=== PATIENT | female | born 1975 | race Caucasian/White ===

== ENCOUNTER 2016-07-29 09:54 | Emergency (ER) | payer OTHER ==
[2016-07-29 10:04] VITALS: BP 124/79; PULSE 81; TEMP 98.4; BMI 29.2
[2016-07-29] MEDS ORDERED: diphenhydrAMINE HCL 25 MG CAPSULE (FP) PO ONE ×2 (11:22→11:30)
--- NOTE | 2016-07-29 11:27 | PDOC ---
History of Present Illness - General Chief Complaint: Itching Stated Complaint: LEG ITCHING Time Seen by Provider: 07/29/16 11:12 History Source: Patient Exam Limitations: No Limitations - History of Present Illness Initial Comments: 07/29/16 11:29 Chief complaint: Bilateral feet itchiness with swelling History of Present illness: Patient is a 40-year-old female with a history of anemia and uterine fibroids, neurofibromyosis according to patient today complaining of slight swelling to dorsal bilateral feet and left ankle 3 days with itchiness with no rash. Patient reports that she was admitted to [facility] from 07/09-07/12/16 for hysterectomy due to fibroids. Patient denies any fever. Any previous swelling of her lower extremities. Patient denies any calf pain. Patient denies any new soaps, lotions , or any medications. Patient was on oxycodone which she last took 2 weeks ago and ibuprofen last Friday. Patient does not have any rash or redness of feet or any peeling of skin on feet. She denies being up on her feet for long periods of time has been resting due to having recent surgery. 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) Other medical history: migranes - Surgical History Abdominal Surgery: Yes ([place]) - Family Disease History Family Disease History: Other: Father (HTN) - Reproductive History (#): 7 Para: 5 - Immunization History Immunization Up to Date: Yes - Psycho/Social/Smoking Cessation Hx Anxiety: No Suicidal Ideation: No Smoking Status: No Smoking History: Never smoked Have you smoked in the past 12 months: No Number of Cigarettes Smoked Daily: 0 If you are a former smoker, when did you quit?: 19 yrs Hx Alcohol Use: No Drug/Substance Use Hx: No Substance Use Type: Alcohol Review of Systems - Review of Systems Able to Perform ROS?: Yes Constitutional: No: Symptoms Reported HEENTM: No: Symptoms Reported Respiratory: No: Symptoms reported Cardiac (ROS): No: Symptoms Reported ABD/GI: No: Symptoms Reported : No: Symptoms Reported Musculoskeletal: Yes: Symptoms Reported, Joint Swelling (b/l feet, left ankle slight) Integumentary: Yes: Pruritus (b/l feet for 3 days ) Neurological: No: Symptoms reported *Physical Exam - Vital Signs Last Vital Signs Temp Pulse Resp BP Pulse Ox 98.4 F 81 19 124/79 97 07/29/16 10:07/29/16 10:07/29/16 10:07/29/16 10:07/29/16 10:01 - Physical Exam General Appearance: Yes: Appropriately Dressed Respiratory/Chest: positive: Lungs Clear, Normal Breath Sounds. negative: Chest Tender, Respiratory Distress Cardiovascular: positive: Regular Rhythm, Regular Rate, S1, S2 Extremity: positive: Normal Capillary Refill, Normal Inspection, Normal Range of Motion, Pedal Edema (minimal b/l ), Other (negative Mayo b/l ). negative: Tender, Coldness, Cyanosis, Delayed Capillary Refill, Swelling, Calf Tenderness , Erythema, Inflammation Integumentary: positive: Normal Color, Swelling (minimal b/l dorsal feet, left lateral ankel ), Other (vertical scar lower mid abdomen with no surrounding edema/erythema/non tender). negative: Dry, Warm, Cyanotic, Erythema, Mottled, Pale, Cold, Clammy, Diaphoresis, Moist, Hives, Petechiae, Rash, Ecchymosis, Bruising Neurologic: positive: Alert, Normal Response, Respond to painful stimul (b/l feet). negative: Numbness, Sensory Deficit Medical Decision Making - Medical Decision Making 07/29/16 11:31 Patient is a 40-year-old female with a history of anemia and uterine fibroids, neurofibromyosis according to patient today complaining of slight swelling to dorsal bilateral feet and left ankle 3 days with itchiness with no rash. Patient reports that she was admitted to [facility] from 110-113 for hysterectomy due to fibroids. Patient denies any fever or any previous swelling of her lower extremities. Patient denies any calf pain. Patient denies any new soaps, lotions, or any medications. Patient was on oxycodone which she last took 2 weeks ago and ibuprofen last Friday. Patient does not have any rash or redness of feet or any peeling of skin on feet. She denies being up on her feet for long periods of time has been resting due to having recent surgery. b/l feet, left lateral ankle swelling with pruritis for 3 days due to having recent hysterectomy 07/09/16 will rule out DVT b/l legs PLAN: benadryl 25 mg po now and every 4 hrs prn itchiness b/l venous doppler no DVT's noted per Dr. Elena 07/29/16 13:11 07/29/16 13:12 *DC/Admit/Observation/Transfer Diagnosis at time of Disposition: Edema of both feet, Pruritus - Discharge Dispostion Disposition: HOME Condition at time of disposition: Stable - Patient Instructions Additional Instructions: Follow up with your primary care provider within the next few days Return to emergency room if symptoms worsen increased swelling of her extremities and itchiness or rash or any new symptoms develop Today your tests were negative for any blood clots of your legs Patient voiced understanding of discharge instructions and all questions were answered
== END 2016-07-29 14:01 | disposition home or self-care (01) ==
LOC: JERFT 09:54
DX: R60.0 Localized edema (principal); L29.8 Other pruritus; D64.9 Anemia, unspecified
CPT/HCPCS: 93970-TC; 99281-25

== ENCOUNTER 2017-09-09 22:01 | Emergency (ER) | payer OTHER ==
[2017-09-09 22:24] VITALS: BP 136/77; PULSE 84; TEMP 98.5; BMI 32.9
--- NOTE | 2017-09-09 22:24 | PDOC ---
History of Present Illness - General Chief Complaint: Shortness of Breath Stated Complaint: PAIN Time Seen by Provider: 09/09/17 22:21 History Source: Patient Exam Limitations: No Limitations - History of Present Illness Initial Comments: CHIEF COMPLAINT: HISTORY OF PRESENT ILLNESS: Vital signs on arrival are within normal limits. REVIEW OF SYSTEMS: GENERAL/CONSTITUTIONAL: Subjective fever/chills. No weakness. No weight change. HEAD, EYES, EARS, NOSE AND THROAT: No change in vision. No ear pain or discharge. No sore throat. CARDIOVASCULAR: No chest pain or shortness of breath. RESPIRATORY: No cough, wheezing, or hemoptysis. GASTROINTESTINAL: See history of present illness. GENITOURINARY: No dysuria, frequency, or change in urination. MUSCULOSKELETAL: No joint or muscle swelling or pain. No neck or back pain. SKIN: No rash or easy bruising. NEUROLOGIC: No headache, vertigo, loss of consciousness, or loss of sensation. PHYSICAL EXAM: GENERAL: The patient is awake, alert, and fully oriented, in no acute distress. HEAD: Normal with no signs of trauma. ENT: Pupils equal, round and reactive to light, extraocular movements intact, sclera anicteric, conjunctiva clear. Neck supple. LUNGS: Clear to auscultation bilaterally. Normal excursion. No respiratory distress or use of accessory muscles. CV: RRR, S1/S2, no MRG. Cap refill < 2 sec. ABDOMEN: Soft, non-distended, non-tender even to deep palpation, no hepatomegaly or splenomegaly, no masses. EXTREMITIES: Normal range of motion, no edema. NEUROLOGICAL: Normal speech, normal gait. CN II-XII grossly intact. PSYCH: Normal mood, normal affect. SKIN: Warm, dry, normal turgor, no rashes or lesions noted. 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) COPD: No - Surgical History Abdominal Surgery: Yes ([place]) - Family Disease History Family Disease History: Other: Father (HTN) - Reproductive History (#): 7 Para: 5 - Immunization History Immunization Up to Date: Yes - Suicide/Smoking/Psychosocial Hx Smoking Status: No Smoking History: Never smoked Have you smoked in the past 12 months: No Number of Cigarettes Smoked Daily: 0 If you are a former smoker, when did you quit?: 19 yrs Information on smoking cessation initiated: No Hx Alcohol Use: No Drug/Substance Use Hx: No Substance Use Type: Alcohol *Physical Exam - Vital Signs Last Vital Signs Temp Pulse Resp BP Pulse Ox 98.5 F 84 21 136/77 97 09/09/17 22:10 09/09/17 22:10 09/09/17 22:10 09/09/17 22:10 09/09/17 22:10 Medical Decision Making - Medical Decision Making A/P:
--- NOTE | 2017-09-09 22:51 | PDOC ---
History of Present Illness - General Chief Complaint: Shortness of Breath Stated Complaint: PAIN Time Seen by Provider: 09/09/17 22:21 History Source: Patient Exam Limitations: No Limitations - History of Present Illness Initial Comments: CHIEF COMPLAINT: 41 y/o afebrile female with PMH neurofibromatosis c/o dry cough x 3 days with left lung pain today. HISTORY OF PRESENT ILLNESS: SHe states she had 3 ribs on her left side removed a few months ago because of neurofibromatosis. She states 3 days ago she developed hard, dry cough. Today she developed left rib pain and states her "lungs feel tired". She denies f/c, n/v/d, pressure type chest pain, abd pain and all other symptoms. Vital signs on arrival are within normal limits. REVIEW OF SYSTEMS: GENERAL/CONSTITUTIONAL: No fever/chills. No weakness. No weight change. HEAD, EYES, EARS, NOSE AND THROAT: No change in vision. No ear pain or discharge. No sore throat. CARDIOVASCULAR: +SOB and left rib pain. RESPIRATORY: +dry cough. No wheezing or hemoptysis. GASTROINTESTINAL: No abd pain, nausea, vomiting, diarrhea. GENITOURINARY: No dysuria, frequency, or change in urination. MUSCULOSKELETAL: No joint or muscle swelling or pain. No neck or back pain. SKIN: No rash or easy bruising. NEUROLOGIC: No headache, vertigo, loss of consciousness, or loss of sensation. PHYSICAL EXAM: GENERAL: The patient is awake, alert, and fully oriented, in no acute distress. She is well appearing with persistent dry cough. HEAD: Normal with no signs of trauma. ENT: Pupils equal, round and reactive to light, extraocular movements intact, sclera anicteric, conjunctiva clear. Neck supple. LUNGS: Clear to auscultation bilaterally. Normal excursion. No respiratory distress or use of accessory muscles. CV: RRR, S1/S2, no MRG. Cap refill < 2 sec. ABDOMEN: Soft, non-distended, non-tender even to deep palpation, no hepatomegaly or splenomegaly, no masses. EXTREMITIES: Normal range of motion, no edema. NEUROLOGICAL: Normal speech, normal gait. CN II-XII grossly intact. PSYCH: Normal mood, normal affect. SKIN: Warm, dry, normal turgor, no rashes or lesions noted. 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) COPD: No - Surgical History Abdominal Surgery: Yes ([place]) - Family Disease History Family Disease History: Other: Father (HTN) - Reproductive History (#): 7 Para: 5 - Immunization History Immunization Up to Date: Yes - Suicide/Smoking/Psychosocial Hx Smoking Status: No Smoking History: Never smoked Have you smoked in the past 12 months: No Number of Cigarettes Smoked Daily: 0 If you are a former smoker, when did you quit?: 19 yrs Information on smoking cessation initiated: No Hx Alcohol Use: No Drug/Substance Use Hx: No Substance Use Type: Alcohol *Physical Exam - Vital Signs Last Vital Signs Temp Pulse Resp BP Pulse Ox 98.5 F 84 21 136/77 97 09/09/17 22:10 09/09/17 22:10 09/09/17 22:10 09/09/17 22:10 09/09/17 22:10 Medical Decision Making - Medical Decision Making A/P: 41 y/o female with bronchitis. Plan is as follows: 1. hcg 2. cXR 3. PO prednisone hcg - negative CXR IMPRESSION: Normal chest xray the patient states she feels much better after prednisone. Will disharge with rx for 4 day course of prednisone. Suggested she f/u with her doctor and return to the ER immediately with any worsening or concerning symptoms. The patient verbalizes understanding of all instructions, has no further questions and is awaiting discharge. *DC/Admit/Observation/Transfer Diagnosis at time of Disposition: Bronchitis - Discharge Dispostion Disposition: HOME Condition at time of disposition: Improved - Referrals - Patient Instructions Printed Discharge Instructions: DI for Acute Bronchitis Additional Instructions: Discharge Instructions: -Your chest xray was normal -You have bronchitis -A prescription for prednisone was sent to your pharmacy; please take as prescribed -Call your doctor in the morning -Return to the ER with any worsening or concerning symptoms. - Post Discharge Activity Forms/Work/School Notes: Back to Work
[2017-09-09] MEDS ORDERED: predniSONE 20 MG TABLET (UD) PO ONE (22:52)
[2017-09-09] MEDS ORDERED: predniSONE 20 MG TABLET (UD) ONE (22:59)
--- NOTE | 2017-09-17 01:12 | EKG ---
Test Reason : Blood Pressure : / mmHG Vent. Rate : 086 BPM Atrial Rate : 086 BPM P-R Int : 148 ms QRS Dur : 086 ms QT Int : 384 ms P-R-T Axes : 048 037 040 degrees QTc Int : 459 ms NORMAL SINUS RHYTHM POSSIBLE LEFT ATRIAL ENLARGEMENT BORDERLINE ECG WHEN COMPARED WITH ECG OF 01-JUL-2015 02:35, NO SIGNIFICANT CHANGE WAS FOUND Confirmed by MADISON CANO MD ([id number]) on 09/17/2017 1:12:07 AM Referred By: Confirmed By:MADISON CANO MD
== END 2017-09-10 01:17 | disposition home or self-care (01) ==
LOC: JER 22:01
DX: J20.9 Acute bronchitis, unspecified (principal); Z85.89 Personal history of malignant neoplasm of other organs and systems
CPT/HCPCS: 71046-TC-FY; 84703; 93005; 93010; 99282-25

== ENCOUNTER 2017-09-26 09:17 | Emergency (ER) | payer OTHER ==
[2017-09-26 09:26] VITALS: PULSE 88; TEMP 98.4; BMI 31.8
[2017-09-26] MEDS ORDERED: METOCLOPRAMIDE HCL INJECTION 10 MG/2 ML VIAL IVPUSH ONE (09:39)
[2017-09-26] MEDS ORDERED: SODIUM CHLORIDE 1,000 ML IV STA (09:39)
--- NOTE | 2017-09-26 10:07 | PDOC ---
History of Present Illness - General History Source: Patient Exam Limitations: No Limitations - History of Present Illness Initial Comments: 09/26/17 10:37 The patient is a 42-year-old female, with a significant past medical history of anemia and neurofibromatosis, who presents to the emergency department with complaint of migraine that began Friday09/20/17. On exam, patient states that her migraine is intermittent, located on the left side with radiation to her eyes and nose region, 9/10 in severity, squeezing in sensation, and associated with nausea. She also reports that she experiences difficulty seeing when the pain comes on. She denies any recent falls or trauma. The patients migraines are usually located on her left side, lasting usually 1 to 2 days after treatment with Excedrin and Topamax, which was prescribed to her by her Assistant Women'S Basketball Coach that she follows up with at [facility] [place]. The patient also follows up with a Neurologist at the Center who diagnosed the patient with migraines after the patient had an MRI scan 2 years ago; he prescribed the patient Propanol, which the patient stopped taking after being placed on Topamax by her Assistant Women'S Basketball Coach. The patient has an upcoming appointment with her Neurologist on Friday09/29/17. She decided to come in to the ED today for further evaluation because her headache has lasted much longer than usual and the medications she usually takes have only alleviated her symptoms temporarily. The patients last headache was a few months ago. The patient denies any fever, chills, vomiting, diarrhea, or abdominal pain. Denies any chest pain or shortness of breath. Denies any dizziness or lightheadedness. Family History: Denies Social History: Patient is a social drinker. 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, ) COPD: No Other medical history: migraines, neurofibromytosis - Surgical History Abdominal Surgery: Yes ([place]) - Family Disease History Family Disease History: Other: Father (HTN) - Reproductive History (#): 7 Para: 5 - Immunization History Immunization Up to Date: Yes - Suicide/Smoking/Psychosocial Hx Smoking Status: No Smoking History: Never smoked Have you smoked in the past 12 months: No Number of Cigarettes Smoked Daily: 0 If you are a former smoker, when did you quit?: 19 yrs Information on smoking cessation initiated: No Hx Alcohol Use: No Drug/Substance Use Hx: No Substance Use Type: Alcohol <Ginette Mendoza - Last Filed: 09/26/17 14:05> - Past Medical History Allergies/Adverse Reactions: Allergies Allergy/AdvReac Type Severity Reaction Status Date / Time oxycodone HCl [From Percocet] Allergy Verified 09/26/17 09:21 Home Medications: Ambulatory Orders Acetaminophen/Caffeine/Butalb [Fioricet -] 1 tab PO TID PRN #12 tablet MDD 3 Review of Systems - Review of Systems Able to Perform ROS?: Yes Comments:: 09/26/17 10:38 GENERAL/CONSTITUTIONAL: No: fever, chills, weakness, loss of appetite. HEAD, EYES, EARS, NOSE AND THROAT:(+)Change in vision. No: ear pain, discharge, sore throat, throat swelling. CARDIOVASCULAR: No: chest pain, lightheadedness, palpitations, syncope RESPIRATORY: No: cough, shortness of breath, wheezing, hemoptysis, stridor. GASTROINTESTINAL: (+)Nausea. No: vomiting, abdominal cramping, diarrhea, rectal bleeding, constipation. GENITOURINARY: No: dysuria, hematuria, frequency, urgency, flank pain. MUSCULOSKELETAL: No: back pain, neck pain, joint pain, muscle swelling or pain SKIN AND BREASTS: No: lesions, pallor, rash or easy bruising. NEUROLOGIC: (+)Migraine. No: vertigo, paresthesias, weakness ENDOCRINE: No: unexplained weight gain or loss HEMATOLOGIC/LYMPHATIC: No: anemia, easy bleeding, swelling nodes <Farida Maradiaga - Last Filed: 09/26/17 13:19> *Physical Exam - Vital Signs Last Vital Signs Temp Pulse Resp BP Pulse Ox 98.4 F 88 18 123/73 100 09/26/17 09:22 09/26/17 09:22 09/26/17 09:22 09/26/17 09:22 09/26/17 09:22 - Physical Exam Comments: 09/26/17 10:41 GENERAL: The patient is in no acute distress. HEAD: Normal with no signs of trauma. EYES: PERRLA, EOMI, sclera anicteric, conjunctiva clear. ENT: Ears normal, nares patent, oropharynx clear without exudates. Moist mucous membranes. NECK: Normal range of motion, supple without lymphadenopathy, JVD, or masses. No nuchal rigidity. LUNGS: Breath sounds equal, clear to auscultation bilaterally. No wheezes, and no crackles. HEART:Regular rate and rhythm, normal S1 and S2 without murmur, rub or gallop. ABDOMEN: Soft, nontender, normoactive bowel sounds. No guarding, no rebound. MSK: (+)Some tenderness to the left-side post surgical. EXTREMITIES: Normal range of motion, no edema. No clubbing or cyanosis. No erythema, or tenderness. NEUROLOGICAL: Cranial nerves II through XII grossly intact. Normal speech. No focal neurological deficits. MUSCULOSKELETAL: Back non-tender to palpation, no CVA tenderness SKIN: Warm, Dry, normal turgor, no rashes or lesions noted. <Farida Maradiaga - Last Filed: 09/26/17 13:19> - Vital Signs Last Vital Signs Temp Pulse Resp BP Pulse Ox 98.4 F 88 18 123/73 100 09/26/17 09:22 09/26/17 09:22 09/26/17 09:22 09/26/17 09:22 09/26/17 09:22 <Ginette Mendoza - Last Filed: 09/26/17 14:05> ED Treatment Course - LABORATORY CBC & Chemistry Diagram: 09/26/17 10:21 09/26/17 10:21 - RADIOLOGY Radiology Studies Ordered: 09/26/17 13:[address] was reviewed by Dr. Mendoza and over-read by Radiology. Impression: No CT evidence of acute intracranial pathology. Partly empty sella turcica. - Medications Given in the ED: ED Medications Discontinued Medications Generic Name Dose Route Start Last Admin Trade Name Freq PRN Reason Stop Dose Admin Diphenhydramine HCl 25 mg 09/26/17 09:39 09/26/17 10:21 Benadryl Injection - IVPB 09/26/17 09:40 25 mg ONCE ONE Administration Metoclopramide HCl 10 mg 09/26/17 09:39 09/26/17 10:21 Reglan Injection - IVPUSH 09/26/17 09:40 10 mg ONCE ONE Administration <Farida Maradiaga - Last Filed: 09/26/17 13:19> - LABORATORY CBC & Chemistry Diagram: 09/26/17 10:21 09/26/17 10:21 <Ginette Mendoza - Last Filed: 09/26/17 14:05> Medical Decision Making - Medical Decision Making Ms Alvarez is a 42 yo F with a history of Neurofibromatosis (s/p multiple surgical resections, pt estimated 10), Migraines (Worked up at [facility] by her neurologist, s/ p MRI 2 years ago) who presents to the ER with a complaint of right sided headache. Symptoms began almost 1 week ago This is unusual for her, her migraines typically respond to Excedrine and last 1 day Last migraine was in April Pt has been taking between 4 and 6 Excedrine with minimal relief Pain is squeezing, located in the right eye/head/face (typical), gradual onset, began almost 1 week ago Pain is intermittent, improved with Excedrine by doesn't resolve No trauma No fevers or chills No neck pain DD: Tension BARRERA, Migraine, given h/o Neurofibromas, ? could this be a cause (last imaging was 2 years ago) Will do: Basic labs CT head Pain management IV F Re assess 09/26/17 11:04 Laboratory Tests 09/26/17 10:21 Sodium 141 Potassium 4.4 Chloride 109 H Carbon Dioxide 24 Anion Gap 8 BUN 10 Creatinine 0.6 Random Glucose 86 Laboratory Tests 09/26/17 10:21 WBC 7.0 D Hgb 12.1 D Hct 36.7 Plt Count 244 Neutrophils % 65.6 D Lymphocytes % 23.2 D 09/26/17 13:54 Upon re assessment, pt states she feels much better Will discharge to home Will give small prescription for Fiorecet Pt has appointment for September 29 already Clinical Impression: migraine headache, initial presentation 09/26/17 13:56 <Ginette Mendoza - Last Filed: 09/26/17 14:05> *DC/Admit/Observation/Transfer - Attestations Scribe Attestion: 09/26/17 10:43 Documentation prepared by Farida Maradiaga, acting as ophthalmic medical technologist for Ginette Mendoza MD. <Farida Maradiaga - Last Filed: 09/26/17 13:19> - Discharge Dispostion Admit: No <Ginette Mendoza - Last Filed: 09/26/17 14:05> Diagnosis at time of Disposition: Migraine Qualifiers: Migraine type: other Status migrainosus presence: without status migrainosus Intractability: not intractable Qualified Code(s): G43.809 - Other migraine, not intractable, without status migrainosus - Discharge Dispostion Disposition: HOME Condition at time of disposition: Stable - Patient Instructions Printed Discharge Instructions: DI for Migraine, Migraine Headaches ( Alternative Therapy) Additional Instructions: Ms Alvarez Daniel por venir a la sarah de emergencia hoy Puede kary Excedrin para aguillon migraa Si tiene un dolor rosemary, intente con Fiorecet para el dolor de tyron (receta enviada a aguillon farmacia) Controle si tiene fiebre, escalofros o vmitos Puede kary la medicacin que le dieron anteriormente por nuseas Si nota algn sntoma nuevo que lo stefani sentir involucrado, por favor regrese a la sarah de emergencia. Por favor, mantenga aguillon rosmery de seguimiento [facility] Thank you for coming in to the ER today You can take Excedrin for your migraine If you have severe pain, please try Fiorecet for headache (prescription sent to your pharmacy) Please monitor for fevers, chills, vomiting You can take the medication you were previously given for nausea If you notice any new symptoms that make your concerned please come back to the ER Please keep your follow up appointment on Friday Print Language: KHMER
[2017-09-26] MEDS ORDERED: METOCLOPRAMIDE HCL INJECTION 10 MG/2 ML VIAL ONE (10:23)
[2017-09-26 10:56] LABS: ANION GAP 8 (8-16); BLOOD UREA NITROGEN 10 mg/dL (7-18); CALCIUM 8.8 mg/dL (8.5-10.1); CHLORIDE 109 mmol/L (98-107); CO2 24 mmol/L (21-32); CREATININE 0.6 mg/dL (0.55-1.02); GLUCOSE,RANDOM 86 mg/dL (74-106); POTASSIUM 4.4 mmol/L (3.5-5.1); SODIUM 141 mmol/L (136-145)
[2017-09-26 10:59] LABS: BASO % 0.8 % (0-2.0); EOS % 3.6 % (0-4.5); HEMATOCRIT 36.7 % (32.4-45.2); HEMOGLOBIN 12.1 GM/dL (10.7-15.3); LYMPH % 23.2 % (8-40); MCH 28.8 pg (25.7-33.7); MCHC 32.8 g/dl (32.0-36.0); MEAN CELL VOLUME 87.8 fl (80-96); MEAN PLT VOLUME 10.3 fl (7.5-11.1); MONO % 6.8 % (3.8-10.2); NEUT % 65.6 % (42.8-82.8); PLATELET COUNT 244 K/MM3 (134-434); RBC 4.18 M/mm3 (3.60-5.2); RDW 13.9 % (11.6-15.6)
[2017-09-26] MEDS ORDERED: ACETAMINOPHEN/CAFFEINE/BUTALBITAL 1 TAB PO ONE (13:15)
[2017-09-26] MEDS ORDERED: KETOROLAC TROMETHAMINE 30 MG/1 ML VIAL IVPUSH ONE (13:16)
[2017-09-26] MEDS ORDERED: KETOROLAC TROMETHAMINE 30 MG/1 ML VIAL ONE (13:54)
[2017-09-26] MEDS ORDERED: ACETAMINOPHEN/CAFFEINE/BUTALBITAL 1 TAB ONE (13:54)
[2017-09-26 14:30] VITALS: BP 164/70
== END 2017-09-26 14:45 | disposition home or self-care (01) ==
LOC: JER 09:17
PROC: 3E033GC Introduction of Other Therapeutic Substance into Peripheral Vein, Percutaneous Approach (ICD-10-PCS; principal; 2017-09-26)
PROC: 3E033GC Introduction of Other Therapeutic Substance into Peripheral Vein, Percutaneous Approach (ICD-10-PCS; 2017-09-26)
PROC: 3E0333Z Introduction of Anti-inflammatory into Peripheral Vein, Percutaneous Approach (ICD-10-PCS; 2017-09-26)
DX: G43.809 Other migraine, not intractable, without status migrainosus (principal); Q85.00 Neurofibromatosis, unspecified; D86.2 Sarcoidosis of lung with sarcoidosis of lymph nodes; Z86.2 Personal history of diseases of the blood and blood-forming organs and certain disorders involving the immune mechanism; Z85.830 Personal history of malignant neoplasm of bone
CPT/HCPCS: 36415; 70450-TC; 80048; 84703; 85025; 96374; 96375; 99283-25; J7030

== ENCOUNTER 2018-02-05 21:05 | Emergency (ER) | payer OTHER ==
[2018-02-05 21:29] VITALS: BP 144/92; PULSE 79; TEMP 99.3; BMI 31.8
[2018-02-05] MEDS ORDERED: METOCLOPRAMIDE HCL INJECTION 10 MG/2 ML VIAL IVPB STA (21:47)
--- NOTE | 2018-02-05 21:47 | PDOC ---
History of Present Illness - General Chief Complaint: Headache Stated Complaint: HEADACHE Time Seen by Provider: 02/05/18 21:32 History Source: Patient - History of Present Illness Initial Comments: 02/05/18 23:31 42-year-old female with history of migraines, neurofibromatosis status post multiple removal surgeries complaining of migrainous headache for the last 5 days. Patient reports that she took her Topamax doses with no relief in pain. Patient reports photophobia and phonophobia which is similar to her previous migraine headaches symptoms. Denies dizziness, nausea, vomiting, abdominal pain. 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, ) COPD: No - Surgical History Abdominal Surgery: Yes ([place]) - Family Disease History Family Disease History: Other: Father (HTN) - Reproductive History (#): 7 Para: 5 - Immunization History Immunization Up to Date: Yes - Suicide/Smoking/Psychosocial Hx Smoking Status: No Smoking History: Never smoked Have you smoked in the past 12 months: No Number of Cigarettes Smoked Daily: 0 If you are a former smoker, when did you quit?: 19 yrs Information on smoking cessation initiated: No Hx Alcohol Use: No Drug/Substance Use Hx: No Substance Use Type: None Review of Systems - Review of Systems Able to Perform ROS?: Yes Is the patient limited Georgian proficient: No Constitutional: No: Symptoms Reported, See HPI, Chills, Diaphoresis, Fever, Loss of Appetite, Malaise, Night Sweats, Weakness, Weight Stable, Unintentional Wgt. Loss, Unexplained wgt Loss, Other Neurological: Yes: Headache, Other (photophobia and phonophobia) *Physical Exam - Vital Signs Last Vital Signs Temp Pulse Resp BP Pulse Ox 99.3 F 79 18 144/92 100 02/05/18 21:10 02/05/18 21:10 02/05/18 21:10 02/05/18 21:10 02/05/18 21:10 - Physical Exam General Appearance: Yes: Appropriately Dressed Respiratory/Chest: positive: Lungs Clear, Normal Breath Sounds Gastrointestinal/Abdominal: positive: Normal Bowel Sounds, Soft Extremity: positive: Normal Capillary Refill, Normal Inspection, Normal Range of Motion Integumentary: positive: Normal Color, Dry, Warm Neurologic: 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 Patient advised to follow-up with neurology for treatment management. *DC/Admit/Observation/Transfer Diagnosis at time of Disposition: Migraine headache without aura Qualifiers: Status migrainosus presence: with status migrainosus Intractability: not intractable Qualified Code(s): G43.001 - Migraine without aura, not intractable , with status migrainosus - Discharge Dispostion Disposition: HOME - Referrals - Patient Instructions Printed Discharge Instructions: Migraine -- Adult Additional Instructions: Drink plenty Of fluids. Take ibuprofen every 6 hours as needed for headache Follow-up with your neurologist as soon as possible. return to the ER if symptoms worsen. - Post Discharge Activity
[2018-02-05] MEDS ORDERED: SODIUM CHLORIDE 1,000 ML IV STA (21:48)
[2018-02-05] MEDS ORDERED: METOCLOPRAMIDE HCL INJECTION 10 MG/2 ML VIAL ONE (22:06)
[2018-02-05 22:20] LABS: BASO % 0.8 % (0-2.0); EOS % 4.5 % (0-4.5); HEMATOCRIT 35.1 % (32.4-45.2); HEMOGLOBIN 11.7 GM/dL (10.7-15.3); LYMPH % 27.2 % (8-40); MCH 29.3 pg (25.7-33.7); MCHC 33.3 g/dl (32.0-36.0); MEAN CELL VOLUME 87.9 fl (80-96); MEAN PLT VOLUME 9.9 fl (7.5-11.1); MONO % 9.3 % (3.8-10.2); NEUT % 58.2 % (42.8-82.8); PLATELET COUNT 256 K/MM3 (134-434); RDW 13.3 % (11.6-15.6); WHITE BLOOD COUNT 8.6 K/mm3 (4.0-10.0)
[2018-02-05 22:32] LABS: INR 1.1 (0.83-1.09); PROTHROMBIN TIME (PATIENT) 12.4 SEC (9.7-13.0)
[2018-02-05 22:41] LABS: ALBUMIN 3.6 g/dl (3.4-5.0); ALK PHOS 103 U/L (45-117); ANION GAP 9 (8-16); BILIRUBIN,TOTAL 0.2 mg/dL (0.2-1.0); BLOOD UREA NITROGEN 12 mg/dL (7-18); CALCIUM 8.8 mg/dL (8.5-10.1); CHLORIDE 110 mmol/L (98-107); CO2 25 mmol/L (21-32); CREATININE 0.6 mg/dL (0.55-1.02); GLUCOSE,RANDOM 90 mg/dL (74-106); SGOT/AST 16 U/L (15-37); SGPT/ALT 22 U/L (12-78); SODIUM 144 mmol/L (136-145)
[2018-02-05] MEDS ORDERED: KETOROLAC TROMETHAMINE 30 MG/1 ML VIAL IVPUSH ONE (23:10)
[2018-02-05] MEDS ORDERED: KETOROLAC TROMETHAMINE 30 MG/1 ML VIAL ONE (23:15)
== END 2018-02-05 23:59 | disposition home or self-care (01) ==
LOC: JER 21:05
PROC: 3E0333Z Introduction of Anti-inflammatory into Peripheral Vein, Percutaneous Approach (ICD-10-PCS; principal; 2018-02-05)
PROC: 3E033GC Introduction of Other Therapeutic Substance into Peripheral Vein, Percutaneous Approach (ICD-10-PCS; 2018-02-05)
PROC: 3E0337Z Introduction of Electrolytic and Water Balance Substance into Peripheral Vein, Percutaneous Approach (ICD-10-PCS; 2018-02-05)
DX: G43.001 Migraine without aura, not intractable, with status migrainosus (principal); Z85.830 Personal history of malignant neoplasm of bone
CPT/HCPCS: 36415; 80053; 84703; 85025; 85610; 99282-25; J7030

== ENCOUNTER 2018-10-04 10:02 | Emergency (ER) | payer OTHER ==
[2018-10-04 10:14] VITALS: BP 117/78; PULSE 80; TEMP 98; BMI 32.9
--- NOTE | 2018-10-04 11:30 | PDOC ---
History of Present Illness - General Chief Complaint: Pain Stated Complaint: BACK PAIN Time Seen by Provider: 10/04/18 10:28 History Source: Patient Exam Limitations: No Limitations - History of Present Illness Initial Comments: 10/04/18 11:29 43 yo w/ a h/o neurofibromatosis s/p multiple surgical tumor removals and hysterectomy, anemia, skin cancer s/p ressection, in remission, comes in c/o chronic low back pain radiating to the pelvic area for the past 1 year. Pain started again 2 days ago, hence the ED visit. Pt took diclofenac yesterday and it temporarily relieves the pain. Pain is not different than the pain she has had for the past year, no new event, no new trauma, no new injury. She denies anything different. She has been to her orthopedist who referred her to her OBGYN and she had a sono done last month but does not have her results yet. She denies any abdominal pain now, no vaginal bleeding, denies . Denies burning/pain on urination, no frequency/urgency on urination. Denies incontinence, no saddle paresthesias, no extremity numbbness/tignling, no IVDA. 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, ) COPD: No - Surgical History Abdominal Surgery: Yes ([place] 2002) - Family Disease History Family Disease History: Other: Father (HTN) - Reproductive History (#): 7 Para: 5 - Immunization History Immunization Up to Date: Yes - Suicide/Smoking/Psychosocial Hx Smoking Status: No Smoking History: Never smoked Have you smoked in the past 12 months: No Number of Cigarettes Smoked Daily: 0 If you are a former smoker, when did you quit?: 19 yrs Hx Alcohol Use: No Drug/Substance Use Hx: No Substance Use Type: None Review of Systems - Review of Systems Able to Perform ROS?: Yes Constitutional: No: Chills, Fever, Malaise, Night Sweats HEENTM: No: Eye Pain, Recent change in vision, Throat Pain Respiratory: No: Cough, Shortness of Breath Cardiac (ROS): No: Chest Pain, Palpitations, Chest Tightness ABD/GI: No: Diarrhea, Nausea, Vomiting, Abdominal cramping (none now) : No: Dysuria, Hematuria Musculoskeletal: Yes: Back Pain Integumentary: No: Rash Neurological: No: Headache, Numbness, Dizziness Psychiatric: No: Change in Appetite Endocrine: No: Unexplained Weight Loss *Physical Exam - Vital Signs Last Vital Signs Temp Pulse Resp BP Pulse Ox 98 F 80 18 117/78 99 10/04/18 10:09 10/04/18 10:09 10/04/18 10:09 10/04/18 10:10/04/18 10:09 - Physical Exam General Appearance: Yes: Nourished. No: Apparent Distress HEENT: positive: JAKE, Normal ENT Inspection, Normal Voice. negative: Pale Conjunctivae, Scleral Icterus (R), Scleral Icterus (L) Neck: positive: Supple. negative: Decreased range of motion, Tender midline Respiratory/Chest: positive: Lungs Clear, Normal Breath Sounds. negative: Respiratory Distress, Accessory Muscle Use Cardiovascular: positive: Regular Rhythm, Regular Rate Female Pelvic Exam: positive: normal external exam, normal size ovaries, discharge (mild whitish. Pt declines STD testing.). negative: CMT, adnexal tenderness (no uterine tenderness), vaginal bleeding Gastrointestinal/Abdominal: positive: Normal Bowel Sounds, Soft. negative: Tender, Guarding, Rebound Musculoskeletal: positive: Normal Inspection, Other (mild paraspinal muscular tenderness). negative: CVA Tenderness, Decreased Range of Motion, Vertebral Tenderness Extremity: positive: Normal Capillary Refill, Normal Inspection, Normal Range of Motion, Other (full sensory function to LEs). negative: Tender, Pedal Edema Integumentary: positive: Normal Color, Dry. negative: Jaundice, Rash Neurologic: positive: Fully Oriented, Alert, Normal Mood/Affect Medical Decision Making - Medical Decision Making 10/04/18 11:55 43 yo F w/ low back pain, chronic pain, which sometimes radiates to the pelvic region for 1 year. She has leena her PMD and her OB, had a sono done and results are pending. She has also seen ortho. Pelvic exam and back exam WNLs. She is ambulatory in [facility], take diclofenac for pain. WIll check UA, UCG and will refer back to her PMD and her OBGYN Return for worsening/concerning symptoms Pt verbalizes understanding and agrees with plan *DC/Admit/Observation/Transfer Diagnosis at time of Disposition: Back pain Qualifiers: Back pain location: low back pain Chronicity: chronic Back pain laterality: unspecified Sciatica presence: without sciatica Qualified Code(s): M54.5 - Low back pain; G89.29 - Other chronic pain - Discharge Dispostion Disposition: HOME Condition at time of disposition: Stable - Referrals Referrals: Vivek Mckeon [Primary Care Provider] - - Patient Instructions Additional Instructions: Please follow up with your PMD, your OBGYN and your orthopedist. Return for worsening/concerning symptoms. You may continue taking diclofenac for your pain , you may add tylenol as needed. - Post Discharge Activity
[2018-10-04 12:45] LABS: PH,URINE 7.5 (5.0-8.0); URINE APPEARANCE CLEAR; URINE BILIRUBIN NEGATIVE (NEGATIVE); URINE COLOR YELLOW; URINE GLUCOSE (UA) NEGATIVE (NEGATIVE); URINE KETONE NEGATIVE (NEGATIVE); URINE LEUK ESTERASE NEGATIVE (NEGATIVE); URINE NITRITE NEGATIVE (NEGATIVE); URINE PROTEIN NEGATIVE (NEGATIVE); URINE UROBILINOGEN 0.2 mg/dL (0.2-1.0)
[2018-10-04 12:54] LABS: HCG,QUALITATIVE URINE Negative
== END 2018-10-04 13:14 | disposition home or self-care (01) ==
LOC: JER 10:02 → JERFT 10:02
DX: M54.5 Low back pain (principal); G89.29 Other chronic pain
CPT/HCPCS: 81003; 84703; 87086; 99281-25

== ENCOUNTER 2019-02-03 22:11 | Emergency (ER) | payer OTHER ==
[2019-02-03 22:18] VITALS: BP 127/82; PULSE 86; TEMP 98.3; BMI 33.8
--- NOTE | 2019-02-03 23:39 | PDOC ---
History of Present Illness - General Chief Complaint: Headache Stated Complaint: HEADACHE Time Seen by Provider: 02/03/19 23:03 - History of Present Illness Initial Comments: 02/03/19 23:38 CHIEF COMPLAINT: "i have a migraine" HISTORY OF PRESENT ILLNESS: 43 yo F with hx of migraines, anemia and neurofibromatosis presents to ED with headache. Patient reports "I have a migraine on the right side of my head." She reports that the headache is her usual migraine headache and that she "just wants the medication and to go home. " She is followed by neurology at [facility] for her neurofibromatosis No recent travel or sick contacts. PAST MEDICAL HISTORY: Denies past medical history FAMILY HISTORY: Denies SOCIAL HISTORY: Denies tobacco, alcohol, illicit drug use. SURGICAL HISTORY: Denies ALLERGIES: No known drug allergies REVIEW OF SYSTEMS General/Constitutional: Denies fever or chills. Denies weakness, weight change. HEENT: Denies change in vision. Denies ear pain or discharge. Denies sore throat. Cardiovascular: Denies chest pain or shortness of breath. Respiratory: Denies cough, wheezing, or hemoptysis. Gastrointestinal: Denies nausea, vomiting, diarrhea or constipation. Denies rectal bleeding. Genitourinary: Denies dysuria, frequency, or change in urination. Musculoskeletal: Denies joint or muscle swelling or pain. Denies neck or back pain. Skin and breasts: Denies rash or easy bruising. Neurologic: Headache. Vertigo, loss of consciousness, or loss of sensation. PHYSICAL EXAM General Appearance: Well-appearing, appropriately dressed. No apparent distress. HEENT: EOMI, PERRLA, normal ENT inspection, normal voice, TMs normal, pharynx normal. No conjunctival pallor. No photophobia, scleral icterus. Neck: Supple. Trachea midline. No tenderness, rigidity, carotid bruit, stridor , lymphadenopathy, or thyromegaly. Respiratory/Chest: Lungs CTAB. No shortness of breath, chest tenderness, respiratory distress, accessory muscle use. No crackles, rales, rhonchi, stridor , wheezing, dullness Cardiovascular: RRR. S1, S2. No JVD, murmur, bradycardia, tachycardia. Vascular Pulses: Dorsalis-Pedis (R): 2+, Dorsalis-Pedis (L): 2+ Gastrointestinal/Abdominal: Normal bowel sounds. Abdomen soft, non-distended. No tenderness or rebound tenderness. No organomegaly, pulsatile mass, guarding , hernia, hepatomegaly, splenomegaly. Lymphatic: No adenopathy, tenderness. Musculoskeletal/Extremities: Normal inspection. FROM of all extremities, normal capillary refill. Pelvis Stable. No CVA tenderness. No tenderness to extremities, pedal edema, swelling, erythema or deformity. Integumentary: Appropriate color, dry, warm. 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 Fully oriented, alert. Appropriate mood/affect. Motor strength 5/5. No appreciable EOM palsy, facial droop or sensory deficit. 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, ) COPD: No Other medical history: neurofibromytosis - Surgical History Abdominal Surgery: Yes ([place]) - Family Disease History Family Disease History: Other: Father (HTN) - Reproductive History (#): 7 Para: 5 - Immunization History Immunization Up to Date: Yes - Suicide/Smoking/Psychosocial Hx Smoking Status: No Smoking History: Never smoked Have you smoked in the past 12 months: No Number of Cigarettes Smoked Daily: 0 If you are a former smoker, when did you quit?: 19 yrs Hx Alcohol Use: No Drug/Substance Use Hx: No Substance Use Type: None *Physical Exam - Vital Signs Last Vital Signs Temp Pulse Resp BP Pulse Ox 98.3 F 86 18 127/82 97 02/03/19 22:15 02/03/19 22:15 02/03/19 22:15 02/03/19 22:15 02/03/19 22:15 Medical Decision Making - Medical Decision Making 02/03/19 23:49 43 yo F with hx of migraines, anemia and neurofibromatosis presents to ED with headache. -fluids, toradol, benadryl, reglan 02/04/19 02:02 Patient became agitated after waiting 10 minutes for RN to administer meds and walked out stating she had waited too long. *DC/Admit/Observation/Transfer Diagnosis at time of Disposition: Head ache - Discharge Dispostion Disposition: ELOPED Condition at time of disposition: Stable - Referrals - Patient Instructions - Post Discharge Activity
[2019-02-03] MEDS ORDERED: KETOROLAC TROMETHAMINE 30 MG/1 ML VIAL IVPUSH ONE (23:40)
[2019-02-03] MEDS ORDERED: METOCLOPRAMIDE HCL INJECTION 10 MG/2 ML VIAL IVPUSH ONE (23:40)
[2019-02-03] MEDS ORDERED: SODIUM CHLORIDE 0.9% 500 ML INFUS.BAG IV ONE (23:45)
[2019-02-03] MEDS ORDERED: KETOROLAC TROMETHAMINE 15 MG/ML VIAL ONE (23:55)
[2019-02-03] MEDS ORDERED: METOCLOPRAMIDE HCL INJECTION 10 MG/2 ML VIAL ONE (23:55)
== END 2019-02-04 00:07 | disposition left against medical advice (07) ==
LOC: JER 22:11
DX: R51 Headache (principal); Q85.00 Neurofibromatosis, unspecified; D64.9 Anemia, unspecified
CPT/HCPCS: 99281-25

== ENCOUNTER 2020-02-18 03:36 | Emergency (ER) | payer OTHER ==
[2020-02-18 04:08] VITALS: BP 132/87; PULSE 80; TEMP 98.4; BMI 32.9
[2020-02-18] MEDS ORDERED: METOCLOPRAMIDE HCL INJECTION 10 MG/2 ML VIAL IVPUSH ONE (04:15)
[2020-02-18] MEDS ORDERED: SODIUM CHLORIDE 1,000 ML IV STA (04:15)
--- NOTE | 2020-02-18 04:17 | PDOC ---
History of Present Illness - General Chief Complaint: Migraine Headache Stated Complaint: MIGRAINE History Source: Patient Exam Limitations: No Limitations - History of Present Illness Initial Comments: Pt is a 44 yo F, with PMH of neurofibromatosis and migraines (on propanolol and excedrin), who is presenting with a migraine. Pt states he migraine is similar in quality (frontal over her R eye), but has not improved with her regular medication. The onset was slow and is associated with light sensitivity and nausea. Pt denies any fevers/chills, vision changes, syncope, chest pain, palpitations, SOB, vomiting, abdominal pain, urinary symptoms, diarrhea/constipation, or leg swelling. Allergies: NKDA PCP: None Neurologist: Dr. Ridge Almonte ([facility]) Social: Pt denies any cigarette, alcohol, or drug use. Pt denies any recent travel or sick contacts. Surgical: multiple lesion removal (neurofibromatosis), no intracranial surgeries or shunts Family: no relevant history. 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,) COPD: No - Surgical History Abdominal Surgery: Yes ([place]) - Reproductive History Is Patient Now?: No (#): 7 Para: 5 - Immunization History Immunization Up to Date: Yes - Psycho-Social/Smoking History Smoking Status: No Smoking History: Never smoked Have you smoked in the past 12 months: No Number of Cigarettes Smoked Daily: 0 If you are a former smoker, when did you quit?: 19 yrs Information on smoking cessation initiated: No - Substance Abuse Hx (Audit-C & DAST Scrn) How often the patient has a drink containing alcohol: Never Score: In Men: 4 or > Positive; In Women: 3 or > Positive: 0 Screen Result (Pos requires Nsg. Audit-10AR): Negative In the last yr the pt used illegal drug/Rx for NonMed reason: No Score: Yes response is considered Positive: 0 Screen Result (Positive result requires Nsg. DAST-10): Negative Neuro Specific PMHX - Complaint Specific PMHX Glaucoma: No Herniated Disk: No Laminectomy: No Migraine: Yes Multiple Sclerosis: No Neuropathy: No TIA: No Review of Systems - Review of Systems Able to Perform ROS?: Yes Is the patient limited Guatemalan proficient: No Constitutional: Yes: Weight Stable. No: Chills, Diaphoresis, Fever, Loss of Appetite, Malaise, Weakness HEENTM: No: Eye Pain, Blurred Vision, Tearing, Recent change in vision, Nose Congestion, Throat Pain, Throat Swelling, Mouth Pain, Dental Problems, Difficulty Swallowing Respiratory: No: Cough, Orthopnea, Shortness of Breath Cardiac (ROS): No: Chest Pain, Edema, Irregular Heart Rate, Lightheadedness, Palpitations, Syncope, Chest Tightness ABD/GI: Yes: Nausea. No: Constipated, Diarrhea, Poor Appetite, Poor Fluid Intake, Vomiting : No: Burning, Dysuria, Frequency, Pain, Urgency Musculoskeletal: No: Back Pain, Neck Pain Integumentary: No: Rash Neurological: Yes: Headache. No: Numbness, Paresthesia, Seizure, Weakness, Unsteady Gait, Ataxia, Dizziness Psychiatric: No: Sleep Pattern Change, Change in Appetite Endocrine: No: Increased Urine, Change in Weight Hematologic/Lymphatic: No: Anemia, Blood Clots, Easy Bleeding, Easy Bruising All Other Systems: Reviewed and Negative *Physical Exam - Vital Signs Last Vital Signs Temp Pulse Resp BP Pulse Ox 98.4 F 80 20 132/87 98 02/18/20 04:07 02/18/20 04:07 02/18/20 04:07 02/18/20 04:07 02/18/20 04:07 - Physical Exam Vitals stable, pt afebrile. Pt in NAD, overweight body habitus. Pt alert and oriented x3. self rising flour mixer generally intact, muscular strength and sensation intact. Cerebellar exam WNL. No midline spinal tenderness, step-offs, or crepitus. Head normocephalic, atraumatic. Eyes PERRLA, EOMI. Oropharynx without erythema or exudates, no LAD b/l. Good dental hygiene, no dental abscesses or swelling noted. No nasal congestion. Hearing intact. Clear heart sounds, S1/S2, no JVD, b/l pedal edema, or heart murmur. Clear lung sounds, no respiratory distress, wheezes, crackles, or accessory muscle use. No abdominal or CVA tenderness to palpation, no rebound, no guarding. Abdomen s oft, non-distended, and with normoactive bowel sounds. Skin without jaundice or rash. 02/18/20 04:30 02/18/20 04:36 Medical Decision Making - Medical Decision Making Pt was seen at bedside, also will be seen by attending Dr. Hanson. Pt presenting with typical migraine, with her usual pattern of pain and onset. VSS. Less concerning for SAH, no extension to neck concerning for carotid involvement. No FNDs on exam. No dental abnormalities. Provided 1L IV NS, 10 mg IV reglan, 25 mg IV benadryl for improvement of headache. Will continue to reassess pt and monitor for symptomatic improvement. 02/18/20 04:38 Pt improved significantly with medication. Pt safe for d/c with f/u to her neurologist. Provided referral for PCP clinic. Strict return precautions provided with pt understanding. 02/18/20 06:04 Discharge - Discharge Information Problems reviewed: Yes Clinical Impression/Diagnosis: Migraine Qualifiers: Migraine type: chronic without aura Status migrainosus presence: without status migrainosus Intractability: not intractable Qualified Code(s): G43.709 - Chronic migraine without aura, not intractable, without status migrainosus Condition: Improved Disposition: HOME - Admission No - Follow up/Referral Referrals: [facility] [place] [facility] [place] [Provider Group] - Patient Discharge Instructions Patient Printed Discharge Instructions: DI for Migraine Additional Instructions: You were seen in the ER today for migraines, which improved with medication. I have provided you with a referral for a primary care doctor. Please follow-up within 1-2 days to discuss your visit and make sure your symptoms have improved. Please return to the ER if you have any worsening pain, development of fevers or chills, loss of consciousness, inability to tolerate food or fluids, or any other concerns. - Post Discharge Activity
[2020-02-18] MEDS ORDERED: METOCLOPRAMIDE HCL INJECTION 10 MG/2 ML VIAL ONE (04:34)
--- NOTE | 2020-02-18 05:09 | PDOC ---
Attending Attestation - Resident Resident Name: Christelle Villalobos - ED Attending Attestation I have performed the following: I have examined & evaluated the patient, The case was reviewed & discussed with the resident, I agree w/resident's findings & plan, Exceptions are as noted - HPI HPI: 02/18/20 07:50 See resident HPI - Physicial Exam PE: 02/18/20 07:51 Agree with documented exam - Medical Decision Making 02/18/20 07:51 Likely migraine BARRERA, typical pattern and character, no red flags analgesia re-eval significant symptomatic improvement dc Discharge - Discharge Information Problems reviewed: Yes Clinical Impression/Diagnosis: Migraine Qualifiers: Migraine type: chronic without aura Status migrainosus presence: without status migrainosus Intractability: not intractable Qualified Code(s): G43.709 - Chronic migraine without aura, not intractable, without status migrainosus Condition: Improved Disposition: HOME - Follow up/Referral Referrals: [facility] [place] [facility] [place] [Provider Group] - Patient Discharge Instructions Patient Printed Discharge Instructions: DI for Migraine Additional Instructions: You were seen in the ER today for migraines, which improved with medication. I have provided you with a referral for a primary care doctor. Please follow-up within 1-2 days to discuss your visit and make sure your symptoms have improved. Please return to the ER if you have any worsening pain, development of fevers or chills, loss of consciousness, inability to tolerate food or fluids, or any other concerns. - Post Discharge Activity
== END 2020-02-18 06:12 | disposition home or self-care (01) ==
LOC: JER 03:36
PROC: 3E033NZ Introduction of Analgesics, Hypnotics, Sedatives into Peripheral Vein, Percutaneous Approach (ICD-10-PCS; principal; 2020-02-18)
PROC: 3E033GC Introduction of Other Therapeutic Substance into Peripheral Vein, Percutaneous Approach (ICD-10-PCS; 2020-02-18)
PROC: 3E0337Z Introduction of Electrolytic and Water Balance Substance into Peripheral Vein, Percutaneous Approach (ICD-10-PCS; 2020-02-18)
DX: G43.709 Chronic migraine without aura, not intractable, without status migrainosus (principal)
CPT/HCPCS: 99284-25